=== PATIENT | male | born 1990 | race African-American/Black ===

== ENCOUNTER 2024-08-24 10:26 | Inpatient (IN) | payer MEDICARE, MEDICAID, SELFPAY ==
[2024-08-24] VITALS (9 sets, daily range): BP systolic 104–128; BP diastolic 74–92; PULSE 102–116; RESP 18–34; TEMP 36.4–36.9; O2SAT 94–99; BMI 23.5; BMI 21.9
--- NOTE | ~2024-08-24 | CT_ITS ---
CLINICAL HISTORY: SOB CT ANGIOGRAPHY CHEST WITH CONTRAST. 3D POSTPROCESSING. Comparison: None Findings: There is contrast reflux in the IVC and hepatic veins which can be seen with right heart dysfunction. Mild cardiomegaly with no significant pericardial effusion. Unremarkable thoracic aorta and great vessels. No aneurysm. No acute pulmonary embolus. The visualized thyroid and mediastinum are unremarkable. There is a small right pleural effusion. There is diffuse septal thickening. Bilateral lower lobe atelectasis. No consolidation. No pneumothorax. The bones are intact. IMPRESSION: 1. No pulmonary embolus. 2. Pulmonary edema and small right pleural effusion. 3. Evidence for right heart dysfunction. This document has been electronically signed by: Sophia Douglas DO on 08/24/2024 20:38:17
--- NOTE | ~2024-08-24 | XR_ITS ---
EXAMINATION: XR CHEST CLINICAL INFORMATION: cough sob COMPARISON: None available. TECHNIQUE: PA and lateral views of the chest were obtained. FINDINGS: Moderate cardiac enlargement. Mediastinal contours are normal. Mildly prominent vessels in the hilar regions suggesting vascular congestion. Lungs demonstrate mild hazy increased interstitial markings bilaterally, with Zulma lines in the peripheral mid and lower lungs, most consistent with mild CHF. There is biapical pleural scarring. There is no pneumothorax or pleural effusion. There is no focal osseous or soft tissue abnormality. XR/XR chest 2V IMPRESSION: 1. Cardiac enlargement. Vascular congestion with evidence of mild interstitial pulmonary edema. Major differential would include underlying interstitial pulmonary disease. 2. No focal pneumonia or effusion. Electronically signed by: Pedro Moe MD 08/24/2024 12:27 PM [facility]
[2024-08-24 12:35] LABS: Influenza A PCR NEGATIVE (Negative); Influenza B PCR NEGATIVE (Negative); Resp Syncy Virus RNA Qual PCR NEGATIVE (Negative); SARS COV2 PCR INHOUSE NEGATIVE (Negative)
[2024-08-24 12:53] LABS: MANUAL DIFF FLAG NO
[2024-08-24 13:03] LABS: Basophils Absolute Auto 0.1 X10*3/uL (0.0-0.2); Basophils Percent Auto 1.1 % (0-2); Eosinophils Absolute Auto 0.3 X10*3/uL (0.0-0.4); Eosinophils Percent Auto 3.4 % (0-4); Hematocrit 42.8 % (42.0-52.0); Hemoglobin 14.8 g/dl (14.0-18.0); Imm Gran Abs Auto 0.03 X10*3/uL (0.00-0.03); Imm Gran Pct Auto 0.3 % (0.0-0.4); Lymphocytes Absolute Auto 2.3 X10*3/uL (1.2-4.9); Lymphocytes Percent Auto 25.8 % (20-40); Mean Corpuscular HGB Conc 34.6 g/dl (31.0-36.0); Mean Corpuscular Hemoglobin 29.6 pg (27.0-33.0); Mean Corpuscular Volume 85.6 fL (80.0-98.0); Mean Platelet Volume 11.1 fL (9.4-12.4); Monocytes Percent Auto 10.6 % (2-11); Neutrophils Absolute Auto 5.3 x10*3/uL (2.0-8.3); Neutrophils Percent Auto 58.8 % (45-73); Platelet Count 261 X10*3/uL (160-400); Red Cell Distribution Width 12.8 % (11.0-16.0); White Blood Count 9.1 X10*3/uL (4.8-10.8)
[2024-08-24 13:15] LABS: Alanine Aminotransferase 35 U/L (0-40); Albumin Level 3.6 g/dL (3.5-5.0); Alkaline Phosphatase 82 U/L (39-117); Anion Gap 8 (12-20); Aspartate Amino Transferase 31 U/L (5-37); Bilirubin Total 0.8 mg/dL (0.0-1.0); Blood Urea Nitrogen 12 mg/dL (9-16); Calcium 8.7 mg/dL (8.4-10.2); Carbon Dioxide 20 mmol/L (22-29); Chloride 114 mmol/L (96-108); Creatinine Clr Calc Pharmacy 115.8; Estimated Glomerular Filt Rate > 60; Glucose Random 124 mg/dL (60-115); Potassium 4.2 mmol/L (3.3-5.1); Sodium 138 mmol/L (135-145); Total Protein 6.3 g/dL (6.5-8.0)
[2024-08-24 13:20] LABS: B Type Natriuretic Peptide 1186 pg/mL (<100)
--- NOTE | 2024-08-24 15:46 | ECG_ITS ---
Test Reason : SCREENING Blood Pressure : */* mmHG Vent. Rate : 103 BPM Atrial Rate : 103 BPM P-R Int : 146 ms QRS Dur : 86 ms QT Int : 356 ms P-R-T Axes : 33 16 66 degrees QTcB Int : 466 ms Sinus tachycardia with occasional Premature ventricular complexes Possible Left atrial enlargement Low voltage QRS Borderline ECG No previous ECGs available Referred By: Mela Kruse Electronically Signed By: SUZANNE LUTHER
--- NOTE | 2024-08-24 15:47 | ED.GENADULT ---
HPI - General Adult General Chief complaint: Upper Respiratory Symptoms Stated complaint: diff breathing Time Seen by Provider: 08/24/24 15:34 History of Present Illness ED Provider: Dr. Kruse HPI narrative: 34 y/o M patient; PMH + smoking, + social alcohol use, + daily cocaine use, thyroid issue ; presents from home reporting three days of a dry non-productive cough and shortness of breath. He said the shortness of breath is worse with laying flat. Last night he had to sleep sitting up in a chair as he felt that every time he lay down he was gasping for breath. He otherwise denies: chest pain, nausea/vomiting, abdominal pain, fever or chills. No known sick contacts. The patient is 5 days clean of alcohol and smoking, 8 days of cocaine . However he does say prior to the last 8 days he smoked less than a 20 every day for approx 10 weeks. He denies any known family cardiac or lung history. He denies any IV drug use ever. Related Data Home Medications ?Medication ?Instructions ?Recorded ?Confirmed No Known Home Meds 08/24/24 08/24/24 Allergies Allergy/AdvReac Type Severity Reaction Status Date / Time No Known Allergies Allergy Verified 08/24/24 11:03 Review of Systems Review of Systems: Yes all other systems are reviewed and are negative PMFSH Past Medical History Attestation statement: The following information was validated with the patient. Source: unable to obtain Medical History (Updated 08/24/24 @ 20:31 by Linn Gomez PA-C) Hyperthyroidism Social History Social History Smoked in Last 30 Days: No Use of substances other than those prescribed or required for medical reasons: No Advance Directives: No Advance Directives Information Provided: Yes Do you have a plan to hurt others: No Plan Physical Exam ED Vital Signs: Vital Signs - 24 hr 08/24/24 11:00 08/24/24 15:51 08/24/24 16:07 Temperature 97.6 F 98.4 F Pulse Rate 102 H 108 H Respiratory Rate 18 21 H Blood Pressure 128/92 H 108/80 Pulse Oximetry 97 96 96 Oxygen Delivery Method Room Air Room Air Room Air 08/24/24 18:09 08/24/24 19:05 08/24/24 19:56 Temperature 98.2 F 97.8 F Pulse Rate 106 H 116 H Respiratory Rate 31 H 34 H Blood Pressure 115/82 118/87 114/87 Pulse Oximetry 97 94 Oxygen Delivery Method Room Air Room Air 08/24/24 19:57 08/24/24 20:29 Temperature 97.8 F Pulse Rate 113 H 112 H Respiratory Rate 19 30 H Blood Pressure 114/87 113/78 Pulse Oximetry 95 95 Oxygen Delivery Method Room Air Room Air BMI result Body Mass Index 23.5 Patient is afebrile and mildly tachycardic. Const General: cooperative HENMT Head: Yes normal to inspection and Yes atraumatic Eyes General: appearance normal, both eyes and all related structures Pupils: Equal, round and reactive pupils present EOM: EOMs intact bilaterally Neck Neck: Yes normal visual inspection, Yes full ROM, Yes supple and No tender Chest Chest palpation & inspection: normal inspection of the chest and normal palpation of entire chest wall Resp Other: Crackles at RLL Effort & Inspection: normal respiratory effort, able to speak in complete sentences, Actively coughing and no respiratory distress Cardio Rate: regular rate Rhythm: regular rhythm Peripheral pulses: Peripheral pulses 2+ throughout GI Inspection: Yes normal to inspection, No Abdominal wall edema and No distended Palpation (GI): Soft to palpation, not firm, nontender, no guarding and not rigid Auscultation: normal bowel sounds Back/Spine/Pelvis Back: No back tenderness Neuro Cranial nerves: Yes Equal, round and reactive pupils present Course Course Course Narrative: Patient is afebrile and hemodynamically stable. Reviewed triage results - added EKG, troponin and inflammatory markers. CXR notable for moderate cardiac enlargement, vascular congestion, and increased interstitial markings bilaterally. Added CTA Chest. Reevaluation(s) Reevaluation #1: Labs reviewed. Initial troponin 11.9. BNP 1186. COVID/Flu/RSV negative. 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 Patient continues to have tachycardia 10 - 130BPM with tachypnea and SpO2 92 - 96% on RA while upright. Patient will require IV diuretics, ECHO, and cardiology consultation. Provided Lasix 20mg IV. Plan: Admit to hospitalist Condition: Stable Medications Administered Discontinued Medications Generic Name Dose Route Start Last Admin Trade Name Freq PRN Reason Stop Dose Admin Furosemide 20 mg 08/24/24 19:30 08/24/24 19:56 Furosemide 20 Mg/2 Ml Vial IVPUSH 08/24/24 19:31 20 mg ONCE ONE Administration Protocol Iohexol 65 ml 08/24/24 18:58 08/24/24 18:59 Iohexol 350 Mg/Ml 100 Ml Infus..Btl IV 08/24/24 18:59 65 ml ONCE ONE Administration Medical Decision Making Lab Data 08/24/24 12:48 08/24/24 12:48 Labs: Lab Results 08/24/24 08/24/24 08/24/24 Range/Units 11:45 12:48 17:10 WBC 9.1 (4.8-10.8) X10*3/uL RBC 5.00 (4.60-5.80) X10*6/uL Hgb 14.8 (14.0-18.0) g/dl Hct 42.8 (42.0-52.0) % MCV 85.6 (80.0-98.0) fL MCH 29.6 (27.0-33.0) pg MCHC 34.6 (31.0-36.0) g/dl RDW 12.8 (11.0-16.0) % Plt Count 261 (160-400) X10*3/uL MPV 11.1 (9.4-12.4) fL Immature Gran % (Auto) 0.3 (0.0-0.4) % Neut % (Auto) 58.8 (45-73) % Lymph % (Auto) 25.8 (20-40) % [place] % (Auto) 10.6 (2-11) % Eos % (Auto) 3.4 (0-4) % Baso % (Auto) 1.1 (0-2) % Lymph # (Auto) 2.3 (1.2-4.9) X10*3/uL [place] # (Auto) 1.0 (0.1-1.2) X10*3/uL Eos # (Auto) 0.3 (0.0-0.4) X10*3/uL Baso # (Auto) 0.1 (0.0-0.2) X10*3/uL Abs Immat Gran (auto) 0.03 (0.00-0.03) X10*3/uL Absolute Neuts (auto) 5.3 (2.0-8.3) x10*3/uL Absolute Nucleated RBC 0.000 (0.0-0.012) X10*3/uL Nucleated RBC % (auto) 0.0 (0.0-0.2) /100WBC ESR 2 (0-15) MM/HR Sodium 138 (135-145) mmol/L Potassium 4.2 (3.3-5.1) mmol/L Chloride 114 H (96-108) mmol/L Carbon Dioxide 20 L (22-29) mmol/L Anion Gap 8 L (12-20) BUN 12 (9-16) mg/dL Creatinine 0.84 (0.5-1.4) mg/dL Estim Creat Clear Calc 115.8 Estimated GFR > 60 Random Glucose 124 H (60-115) mg/dL Calcium 8.7 (8.4-10.2) mg/dL Magnesium 2.0 (1.6-2.6) mg/dL Total Bilirubin 0.8 (0.0-1.0) mg/dL Direct Bilirubin 0.2 (0.0-0.5) mg/dL AST 31 (5-37) U/L ALT 35 (0-40) U/L Alkaline Phosphatase 82 (39-117) U/L Troponin I High Sens 11.9 13.2 (<3.5-35.0) ng/L C-Reactive Protein 0.41 (< or = 0.50) mg/dL B-Natriuretic Peptide 1186 H (<100) pg/mL Total Protein 6.3 L (6.5-8.0) g/dL Albumin 3.6 (3.5-5.0) g/dL Lipase 14 (8-78) U/L Influenza Type A (PCR) NEGATIVE (Negative) Influenza Type B (PCR) NEGATIVE (Negative) RSV RNA Qual (PCR) NEGATIVE (Negative) SARS-CoV-2 RNA (RT-PCR) NEGATIVE (Negative) Independent Interpretation I performed an independent interpretation of an: EKG Interpretation: ST 104BPM with normal intervals Radiology Impression Discussion of test interpretation with radiology: I have reviewed the radiologist's reading. Radiologist Impression: EXAMINATION: XR CHEST CLINICAL INFORMATION: cough sob COMPARISON: None available. TECHNIQUE: PA and lateral views of the chest were obtained. FINDINGS: Moderate cardiac enlargement. Mediastinal contours are normal. Mildly prominent vessels in the hilar regions suggesting vascular congestion. Lungs demonstrate mild hazy increased interstitial markings bilaterally, with Zulma lines in the peripheral mid and lower lungs, most consistent with mild CHF. There is biapical pleural scarring. There is no pneumothorax or pleural effusion. There is no focal osseous or soft tissue abnormality. XR/XR chest 2V IMPRESSION: 1. Cardiac enlargement. Vascular congestion with evidence of mild interstitial pulmonary edema. Major differential would include underlying interstitial pulmonary disease. 2. No focal pneumonia or effusion. Electronically signed by: Pedro Moe MD 08/24/2024 12:27 PM [facility] Discharge Plan Discharge Clinical Impression: CHF (congestive heart failure) Patient Disposition: Admitted As Inpatient Print Language: Nepali
[2024-08-24 15:50] LABS: Bilirubin Direct 0.2 mg/dL (0.0-0.5); Lipase 14 U/L (8-78)
[2024-08-24 16:01] LABS: Troponin-I High Sensitivity 11.9 ng/L (<3.5-35.0)
[2024-08-24 16:04] LABS: C Reactive Protein 0.41 mg/dL (< or = 0.50)
--- NOTE | 2024-08-24 16:08 | PC.NURSE ---
Pt presents from home, reporting last few days gasping for air and unable to sleep due to SOB. Reporting SOB worsens on exertion and laying down flat. Alert and oriented, breathing even and unlabored while at rest. No pain right now. Sinus tach on bedside monitor.
[2024-08-24 16:37] LABS: Erythrocyte Sedimentation Rate 2 MM/HR (0-15)
--- OUTSIDE RECORDS SUMMARY | 2024-08-24 16:40 | XMS_ITS | Clinical Summary ---
Author Organization [facility] Address [address] [place] [address] Care Team Providers Care Medication Reconciliation Technician Name Role Phone Sapphire Avendano Primary Care Provider [phone] Source Comments PLEASE NOTE, if this patient is a minor, it may be UNLAWFUL to discuss sensitive information that is contained in these records (such as FAMILY PLANNING, MENTAL HEALTH or SUBSTANCE ABUSE) with the minor patient's parent or other person without the patient's specific authorization.[facility] Allergies No known active allergies Medications methIMAzole (TAPAZOLE) 10 mg tablet Take 20 mg by mouth 02/15/2021 Active propranoloL (INDERAL) 20 mg tablet Take 20 mg by mouth 02/15/2021 Active Active Problems Problem Noted Date Diagnosed Date Hx of drug overdose 05/08/2021 Overview (05/08/2021): Recent ER visit ([facility]) 05/07/2021 after snorting cocaine. Was discharged with Narcan Immunizations Name Administration Dates Next Due PNEUMOCOCCAL POLYSACCHARIDE PPV23 10/31/2020 TDAP 10/31/2020 Social History Tobacco Use Types Packs/Day Years Used Date Smoking Tobacco: Light Smoker Cigarettes Smokeless Tobacco: Never Comments:5-6 a day solos Alcohol Use Standard Drinks/Week Comments No 0 (1 standard drink = 0.6 oz pur e alcohol) Social Connections Answer Date Recorded Connectedness 0 04/16/2024 Financial Resource Strain Answer Date R ecorded Financial Resource Strain 0 2018 Stress Answer Date Recorded Stress 0 03/22/2019 Physical Activity Answer Date Recorded Physical Activity 0 03/22/2019 Food Insecurity Answer Date Recorded Food 0 04/23/2024 Transportation Needs Answer Date Record ed Transportation 0 03/22/2019 Housing Stability Answer Date Recorded Housing 0 03/22/2019 Safety and Environment Answer Date Julio rded Safety 0 03/22/2019 Utilities Answer Date Recorded Utilities 0 03/22/2019 Employment Answer Date Recorded Stress 0 04/16/2024 Sex and Gender Information Value Date Recorded Sex Assigned at Male 10/31/2020 7:53 AM PDT Legal Sex Male 7:11 AM PDT Gender Identity Male 10/31/2020 7:53 AM PDT Sexual Orientation Straight 10/31/2020 7: 53 AM PDT Last Filed Vital Signs Vital Sign Reading Time Taken Comments Blood Pressure 137/103 12/13/2021 1:07 PM EDT Pulse 91 12/13/2021 1:07 PM EDT Temperature 36.7 ??C (98.1 ??F) 10/31/2020 10:53 AM E DT Respiratory Rate 18 10/31/2020 10:53 AM EDT Oxygen Saturation 97% 10/31/2020 10:53 AM EDT Inhaled Oxygen Concentration - - Weight 57.9 kg (127 lb 9.6 oz) 10/31/2020 10:53 AM EDT Height 173 cm (5' 8.11 ) 10/31/2020 10:53 AM EDT Body Mass Index 19.34 10/31/2020 10:53 AM EDT Plan of Treatment Health Maintenance Due Date Last Done Comments Medicare Annual Wellness Visit 2008 Imm-Hepatitis B (1 of 3 - 19 + 3-dose series) 2009 Imm-Pneumococcal (2 of 2 - PCV) 10/31/2021 Tobacco Cessation Counseling (#1) 10/31/2021 021 Tobacco Screening 10/31/2021 10/31/2020 Hypertension Screening (#1) 12/13/2022 [id number] ( - season) 2024 Imm-Influenza (#1) 2024 09/23/2015, 08/03/2014 Alcohol and Drug Screen 07/29/2024 10/31/2020 Depression Annual Screen 07/29/2024 10/31/2020 Imm-DTaP/Tdap/Td (3 - Td or Tdap) 10/31/2030 021, 08/03/2014 HIV Screening Completed 11/04/2020 Hepatitis C Screening Completed 11/04/2020 Procedures Procedure Name Priority Date/Time Associated Diagnosis Comments HEPATITIS C AB W/RFLX HCV RNA, QT, RT PCR Routine 11/04/2020 11:29 AM EDT Screening for viral disease HIV 1/2 AG & AB W/RFLX (4TH GEN) Routine 11/04/2020 11:27 AM EDT Screening for viral disease from Last 3 Months or Most Recently Relevant to Health Maintenance Results * HEPATITIS C AB W/RFLX HCV RNA, QT, RT PCR (11/04/2020 11:29 AM EDT) HEPATITIS C ANTIBODY NON-REACT ASHLEY NON-REACT ASHLEY [employer] [facility] SIGNAL TO CUT-OFF 0.01 <1.00 [employer] [facility] Comment: HCV antibody was non-reactive. There is no laboratory evidence of HCV infection. In most cases, no further action is required. However, if recent HCV exposure is suspected, a test for HCV RNA (test code 21171) is suggested. For additional information please refer to http://education.Schmoozer/faq/YDT62c6 (This link is being provided for informational/ educational purposes only.) Blood Blood / Unknown 11/04/2020 1 1:29 AM EDT 11/04/2020 11:29 AM EDT [employer] DIRECTOR-C LAB - BLOOD DRAW Final Resul t [employer] [facility] [address] [address], [employer] [facility] [address] [address] from Last 3 Months or Most Recently Relevant to Health Maintenance Insurance [place] MEDICA[place] D[place] [facility] DENTAL MEDICAID MEDICARE - [place] Care Teams Medication Reconciliation Technician Relationship Specialty Start Date End Date Sapphire Avendano PA [address] [place] [address] PCP - General Primary Care 12/11/23
--- OUTSIDE RECORDS SUMMARY | 2024-08-24 16:40 | XMS_ITS | Patient Health Record ---
Author Organization [facility] Address [address], [place] [id number] Care Team Providers Care Speeder Worker Name Role Phone [facility]ult [facility] Primar y Care Provider Unavailable Kavitha Priest Unavailable [phone] Reason For Referral No Information Plan Of Treatment No Information Insurance Providers Payer Name Payer Address Payer Phone Subscriber Number Group Number Insured Name Patient Relationship to Insured Coverage Start Date Coverage End Date [facility] [address] [place] [address] [place] [address] [id number] Vic Mcnulty Self - patient is the insured 3 3
[2024-08-24 17:38] LABS: Troponin-I High Sensitivity 13.2 ng/L (<3.5-35.0)
[2024-08-24] MEDS: iohexoL 350 MG/ML 100 ML INFUS..BTL 65 ML IV (18:59)
--- NOTE | 2024-08-24 19:13 | MHC.EDTECH ---
This pct assumed care of Patient at 1900 ,vitals taken ,RN Cristy is aware of Patient high heart rate and high resp ,Patient belongings list done ,Patient ambulated to bathroom and back to bed .
[2024-08-24] MEDS: Furosemide 20 MG/2 ML VIAL IVPUSH (19:56)
--- NOTE | 2024-08-24 19:58 | PHA.MEDREC ---
Addendum entered by Renay Clinton RPh 08/24/24 20:38: [facility] reviewed Original Note: Pharmacy Consult ? Medication Reconciliation Pharmacy has completed the medication reconciliation. Patient states he should be on thyroid medications, however his medicare will not pay for it. Patient has been off his medications for a few months.
--- NOTE | 2024-08-24 20:25 | PM.IMHP ---
History of Present Illness Date of Service: 08/24/24 Attending physician on admission: George Watters Chief Complaint: SOB Pt is a 34 yo male with a pmhx significant for cocaine use and hyperthryoidism, who presented to the ED with 3 days of SOB and dry cough, worsening. he went to [facility] ED yesterday and states that he was told the wait was >8 hours so he decided he would feel better if he went home to rest. he has orthopnea and denies any LE edema. has used cocaine in mild to moderate amounts recently daily for 10 weeks but stopped 8 days ago. he also reports occasional social etoh and quit drinking and smoking 1 week ago. he does not inject. he denies fever, chilld, nausea, vomiting, headache, sore throat, congestion, or rhinorrhea. Review of Systems Constitutional: Constitutional: Denies body ache(s), Denies chills, Denies fatigue, Denies fever(s) and Denies headache(s) Eyes: Eyes: Denies change in vision and Denies photophobia ENT: Denies headache(s), Denies nasal congestion, Denies nasal discharge and Denies sore throat Cardiovascular: Cardiovascular: Denies chest pain, Denies rapid heart rate, Denies leg edema, Denies lightheadedness, Reports dyspnea and Reports orthopnea Respiratory: Respiratory: Denies chest congestion, Reports cough (dry), Reports dyspnea and Denies wheezing Gastrointestinal: Gastrointestinal: Denies diarrhea, Denies nausea and Denies vomiting Genitourinary: Genitourinary: Denies dysuria, Denies urinary frequency and Denies urinary urgency Musculoskeletal: Musculoskeletal: Denies myalgias Integumentary/Breasts: Skin/Breast: Denies rash Neurologic: Denies confusion and Denies headache(s) Psychiatric: Psychiatric: Denies confusion Endocrine: Endocrine: Denies fatigue Hematologic/Lymphatic: Hematologic/Lymphatic: Denies easy bleeding and Denies easy bruising Allergic/Immunologic: Allergic/Immunologic: Denies wheezing [facility] Medical History (Updated 08/24/24 @ 20:31 by Linn Gomez PA-C) Hyperthyroidism Functional capacity: independent ambulation Social History Smoked in Last 30 Days: No Use of substances other than those prescribed or required for medical reasons: No Advance Directives: No Advance Directives Information Provided: Yes Do you have a plan to hurt others: No Plan Narrative: recently quit all 1 week ago: cocaine daily use mild to mederate amount, no injecting. tobacco and social etoh. Meds Allergies Allergy/AdvReac Type Severity Reaction Status Date / Time No Known Allergies Allergy Verified 08/24/24 11:03 Home Medications ?Medication ?Instructions ?Recorded ?Confirmed ?Last Taken ?Type No Known Home Meds 08/24/24 08/24/24 Unknown History Physical Exam Vital Signs and Narrative: Vital Signs: Last Vital Signs Temp 97.8 F 08/24/24 19:05 Pulse 113 H 08/24/24 19:57 Resp 19 08/24/24 19:57 BP 114/87 08/24/24 19:57 Pulse Ox 95 08/24/24 19:57 O2 Del Method Room Air 08/24/24 19:57 BMI result Body Mass Index 23.5 General: AOx3, no acute distress Resp: CTA bilaterally, diminished throughout CVS: tachy, regular rhythm GI: +BS, NT, no distention Skin: Warm, dry Neuro: Cranial nerves II-XII grossly intact bilaterally. Motor grossly intact bilaterally Extremities: No LE edema Psych: Appropriate affect Const: General: No confusion Orientation/consciousness: No confusion Eyes: Direct Ophthalmoscopy: No photophobia Neuro: General: No confusion Results Labs 08/24/24 12:48 08/24/24 12:48 Labs: Laboratory Results - last 24 hr 08/24/24 08/24/24 08/24/24 11:45 12:48 17:10 MCV 85.6 MCH 29.6 MCHC 34.6 RDW 12.8 Plt Count 261 MPV 11.1 Immature Gran % (Auto) 0.3 Neut % (Auto) 58.8 Lymph % (Auto) 25.8 [place] % (Auto) 10.6 Eos % (Auto) 3.4 Baso % (Auto) 1.1 Lymph # (Auto) 2.3 [place] # (Auto) 1.0 Eos # (Auto) 0.3 Baso # (Auto) 0.1 Abs Immat Gran (auto) 0.03 Absolute Neuts (auto) 5.3 Absolute Nucleated RBC 0.000 Nucleated RBC % (auto) 0.0 ESR 2 Anion Gap 8 L Estim Creat Clear Calc 115.8 Estimated GFR > 60 Random Glucose 124 H Calcium 8.7 Magnesium 2.0 Total Bilirubin 0.8 Direct Bilirubin 0.2 AST 31 ALT 35 Alkaline Phosphatase 82 Troponin I High Sens 11.9 13.2 C-Reactive Protein 0.41 B-Natriuretic Peptide 1186 H Total Protein 6.3 L Albumin 3.6 Lipase 14 Influenza Type A (PCR) NEGATIVE Influenza Type B (PCR) NEGATIVE RSV RNA Qual (PCR) NEGATIVE SARS-CoV-2 RNA (RT-PCR) NEGATIVE Imaging Radiologist's Impressions: Impressions Chest X-Ray 08/24/24 11:30 IMPRESSION: 1. Cardiac enlargement. Vascular congestion with evidence of mild interstitial pulmonary edema. Major differential would include underlying interstitial pulmonary disease. 2. No focal pneumonia or effusion. Electronically signed by: Pedro Meo MD 08/24/2024 12:27 PM [facility] Assessment and Plan (1) CHF exacerbation: Status: Acute Plan Pt is a 34 yo male with a pmhx significant for cocaine use and hyperthryoidism, who presented to the ED with 3 days of SOB and dry cough, worsening. recent hx of regular cocaine use and untreated hyperthyroid. acute CHF exacerbation - WBC normal, tachycardic and tachypneic, no sign of infection, no sepsis - CXR with Cardiac enlargement. Vascular congestion with evidence of mild interstitial pulmonary edema. Major differential would include underlying interstitial pulmonary disease. - CTA negative for PE. + pulmonary edema and small right pleural effusion. evidence of R heart dysfunction. - BNP 1186 - EKG with sinus tach and PVCs - trops x2 negative - flu/COVID/RSV negative - given lasix 20mg IV in ED, continue lasix 40mg BID - echo - cardiology consult hyperthyroid - likely cause of tachycardia, can be contributing to CHF - TSH pending cocaine use - pt 8 days sober, encourage to continue sobriety full code VTE prophy: lovenox Pt with acute CHF exacerbation requiring admission for IV diuresis and further w/u for at least 2 midnights stay. Quality Stroke Does the patient have a stroke diagnosis?: No VTE Prior VTE?: No VTE Risk Level:: Medical - moderate - high VTE Device Contraindication: Treatment Not Indicated VTE Drug Contraindication: N/A - Med Ordered
--- NOTE | 2024-08-24 20:39 | MHC.EDTECH ---
Patient urine sample collected and sent to lab ,550 ml urine empty from urinal .
[2024-08-24 20:58] LABS: Amphetamine Screen Urine Not Detected (Not Detect); Barbiturates, Urine Not Detected (Not Detect); Benzodiazepines Screen Urine Not Detected (Not Detect); Buprenorphine Scr Not Detected (Not Detect); Cannabinoid Screen Urine POSITIVE (Not Detect); Cocaine Screen Urine POSITIVE (Not Detect); Fentanyl, urine Not Detected (Not Detect); Methadone Screen, Urine Not Detected (Not Detect); Opiate Screen Urine Not Detected (Not Detect); Oxycodone Screen Urine Not Detected (Not Detect); Phencyclidine Screen Urine Not Detected (Not Detect)
[2024-08-24 21:10] LABS: Thyroid Stimulating Hormone 0.01 uIU/mL (0.32-4.0)
[2024-08-24] MEDS: Melatonin 3 MG TABLET 6 MG PO (22:38)
[2024-08-24] MEDS: Enoxaparin Sodium 40 MG/0.4 ML SYRINGE SUBCUT (22:38)
[2024-08-24] MEDS: 0.9 % Sodium Chloride Flush 3 ML SYRINGE IVFLUSH (22:40)
[2024-08-24 23:31] LABS: Free T4 (Free Thyroxine) 1.62 ng/dL (0.71-1.85)
[2024-08-25 03:55] VITALS: BP 117/81; PULSE 104; RESP 20; TEMP 36.6; O2SAT 93
--- NOTE | 2024-08-25 07:00 | CA_ITS ---
Transthoracic Echocardiogram Patient (Last, First, Middle): Vic Pineda, Gender: Male Date of : 1990 Age: 34 Procedure Date: 08/25/2024 Procedure Type: Transthoracic Echocardiogram Location: [facility] Height: 170.18 cm Weight: 63.05 kg BSA: 1.73 m2 Heart Rate: bpm BP: 113 / 81 mmHg Wire Repairer: TO Referring MD: Linn Gomez PA-C Symptoms: new CHF Study Quality: Adequate w contrast ECG Rhythm: Sinus Conclusions: - The left ventricular systolic function is severely decreased. The visually estimated ejection fraction is between 10-15%. - The basal inferior segment is akinetic. - The left atrium is severely dilated. - There is moderate to severe mitral valve regurgitation. Findings Procedure Information Contrast agent, definity, is being given per protocol without apparent complications. Left Ventricle Severely increased left ventricular cavity size. There is normal left ventricular wall thickness. The left ventricular systolic function is severely decreased. The visually estimated ejection fraction is between 10 15%. There is severe global hypokinesis. Evidence suggests grade III (severe) diastolic dysfunction. LV peak GLS -7%. Wall Motion Rest Echo Findings The basal inferior segment is akinetic. Right Ventricle Mildly increased right ventricular cavity size. There is mildly decreased right ventricular systolic function. Atria The left atrium is severely dilated. The right atrium is mildly dilated. Aortic Valve There is a normal trileaflet aortic valve. There is no aortic valve stenosis. There is no aortic valve regurgitation. Mitral Valve The posterior mitral leaflet has restricted mobility. There is moderate to severe mitral valve regurgitation. The mitral regurgitation jet is directed posteriorly. There is no mitral valve stenosis. Pulmonic Valve The pulmonic valve is likely normal. Tricuspid Valve There is mild tricuspid valve regurgitation. There is no evidence of pulmonary hypertension. Great Vessels The asc aorta is normal in size. Venous The inferior vena cava is mildly dilated and collapses greater than 50% with inspiration. Pericardium/Pleural There is a small pericardial effusion. Prior Study Comparison No prior study available for comparison. Measurements 2D Linear Measurements IVSd: 0.68 0.6-0.9/0.6-1.0 cm LVIDd: 6.98 3.9-5.3/4.2-5.9 cm LVIDd Index: 4.03 2.4-3.2/2.2-3.1 cm/m2 LVIDs: 6.29 2.0-3.6 cm LVPWd: 0.70 0.7-1.1 cm LA Diam: 5.10 2.7-3.8/3.0-4.0 cm LAIDs Index: 2.95 1.5-2.3 cm/m2 LV Mass: 253.76 67-162/88-224 g LV Mass Index: 146.68 43-95/49-115 g/m2 LVOT Diam: 2.30 3.0+(-)1.3 cm 2D Systolic Function EF 4C: 28.30 >55% EF 2C: 17.90 >55% EF BiP: 21.10 >55% Mitral Valve MR Vol - PW Dopp: 39.90 MR VTI: 1.14 MR ERO: 35.00 MR Alias Matheus: 0.38 MR RAD: 0.80 Aortic Valve AoV Pk Matheus: 0.72 AoV Mn Matheus: 0.55 AoV VTI: 0.10 AoV Pk Grad: 2.00 Aov Mn Grad: 1.00 RAE Cont.VTI: 2.99 LVOT LVOT Pk Matheus: 0.44 LVOT Mn Matheus: 0.32 LVOT VTI: 0.07 LVOT Pk Grad: 1.00 LVOT Mn Grad: 0.00 LVOT Diam: 2.30 LVOT Area: 4.15 Right Ventricle TAPSE (mm): 14.30 TVS' Matheus: 9.14 Tricuspid Valve TR Pk Matheus: 2.13 TR Pk Grad: 18.00 RA Press: 8.00 RVSP: 26.00 Great Vessels Aorta Sinus of Valsalva: 3.17 2.0-3.5 cm Ao Asc: 2.90 2.1-3.4 cm Updated in Other Vendor System with Status of Final Jose De Jesus Vega MD electronically signed on 08/25/2024 12:22:08 PM with status of Final
[2024-08-25 07:29] VITALS: BP 113/81; PULSE 95; RESP 16; TEMP 37.1; O2SAT 98
[2024-08-25 07:58] LABS: MANUAL DIFF FLAG NO
[2024-08-25 08:11] LABS: Basophils Absolute Auto 0.1 X10*3/uL (0.0-0.2); Basophils Percent Auto 1.2 % (0-2); Eosinophils Absolute Auto 0.4 X10*3/uL (0.0-0.4); Eosinophils Percent Auto 4.4 % (0-4); Hematocrit 44.7 % (42.0-52.0); Hemoglobin 15.4 g/dl (14.0-18.0); Imm Gran Abs Auto 0.03 X10*3/uL (0.00-0.03); Imm Gran Pct Auto 0.3 % (0.0-0.4); Lymphocytes Absolute Auto 2.7 X10*3/uL (1.2-4.9); Lymphocytes Percent Auto 28.6 % (20-40); Mean Corpuscular HGB Conc 34.5 g/dl (31.0-36.0); Mean Corpuscular Hemoglobin 29.5 pg (27.0-33.0); Mean Corpuscular Volume 85.6 fL (80.0-98.0); Mean Platelet Volume 11.8 fL (9.4-12.4); Monocytes Absolute Auto 0.9 X10*3/uL (0.1-1.2); Monocytes Percent Auto 10.2 % (2-11); Neutrophils Absolute Auto 5.1 x10*3/uL (2.0-8.3); Neutrophils Percent Auto 55.3 % (45-73); Platelet Count 281 X10*3/uL (160-400); Red Blood Count 5.22 X10*6/uL (4.60-5.80); Red Cell Distribution Width 12.7 % (11.0-16.0); White Blood Count 9.3 X10*3/uL (4.8-10.8)
[2024-08-25 08:32] LABS: Anion Gap 13 (12-20); Blood Urea Nitrogen 12 mg/dL (9-16); Calcium 8.9 mg/dL (8.4-10.2); Carbon Dioxide 21 mmol/L (22-29); Chloride 109 mmol/L (96-108); Creatinine Clr Calc Pharmacy 111.2; Estimated Glomerular Filt Rate > 60; Glucose Random 101 mg/dL (60-115); Potassium 3.9 mmol/L (3.3-5.1); Sodium 139 mmol/L (135-145)
--- NOTE | 2024-08-25 08:55 | MHC.CM.PN ---
CM met with Patient at bedside. Patient lives in an apartment with his Mother and he is functionally independent (his car is here and he intends ti drive himself home, at dc). Patient has no PCP since his old PCP moved and CM has provided him with a brochure of local PCPs. Home/self care is Patient's goal and CM has initiated and will follow for dc planning. Patient declined completing a HCP at this time.
--- NOTE | 2024-08-25 09:18 | PM.CNCAR ---
History of Present Illness History of Present Illness Date of Service: 08/25/24 Chief complaint: CHF, hyperthyroid Narrative: This is a cardiology consultation regarding congestive heart failure. Patient does not have any prior history of coronary disease or myocardial infarction or cardiomyopathy or any other cardiac issues. Over the last few days, he has apparently been feeling short of breath and that led to this hospitalization. Cardiac BNP has been elevated with a suspicion of congestive heart failure and we are asked to see him. He has received some IV diuretics and states he is feeling better. No other complaints like angina. History of substance abuse and drug screen was positive for cocaine and marijuana. Also a smoker but denies any alcohol excess. No major comorbidities apart from drug use. Review of Systems Review of Systems: Yes all other systems are reviewed and are negative Constitutional: Constitutional: Reports as per HPI and Reports no additional constitutional complaints Eyes: Eyes: Reports as per HPI and Denies no additional eye complaints ENT: Denies system reviewed and no additional complaints, except as documented and Reports as per HPI Cardiovascular: Cardiovascular: Reports as per HPI, Reports no additional cardiovascular complaints, Denies acrocyanosis, Denies cool extremities, Denies chest pain, Denies leg edema, Denies lightheadedness, Denies palpitations and Reports dyspnea Respiratory: Respiratory: Reports as per HPI, Denies no additional respiratory complaints and Reports dyspnea Gastrointestinal: Gastrointestinal: Reports as per HPI and Denies no additional gastrointestinal complaints Genitourinary: Genitourinary: Reports no additional male genitourinary complaints and Reports as per HPI Musculoskeletal: Musculoskeletal: Reports no additional musculoskeletal complaints and Reports as per HPI Integumentary/Breasts: Skin/Breast: Reports system reviewed and no additional complaints, except as docu Neurologic: Reports system reviewed and no additional complaints, except as documented and Reports as per HPI Psychiatric: Psychiatric: Reports no additional psychiatric complaints and Reports as per HPI Endocrine: Endocrine: Reports no additional endocrine complaints, Reports as per HPI and Denies palpitations Hematologic/Lymphatic: Hematologic/Lymphatic: Reports no additional hematologic/lymphatic complaints and Reports as per HPI Allergic/Immunologic: Allergic/Immunologic: Reports no additional allergic/immunologic complaints and Reports as per HPI [facility] Past Medical History Medical History (Updated 08/25/24 @ 09:21 by Jose De Jesus Vega MD) Hyperthyroidism Family History Family History Father No problems noted. Mother No problems noted. Social History Social History Household Members: Family Housing: Apartment Do you presently have visiting nurse or other home services: No Patient Tobacco Use Status: Former Tobacco user Tobacco use type: Cigarette Cigarettes Per Day: 7 Substance Use Type: Crack/Cocaine and Marijuana service: No Meds Allergies Allergy/AdvReac Type Severity Reaction Status Date / Time No Known Allergies Allergy Verified 08/24/24 11:03 Active Medications: Current Medications Acetaminophen (Acetaminophen 325 Mg Tablet) 975 mg PO Q6H PRN PRN Reason: Pain, Mild 1-3,fever,headache Calcium Carbonate (Calcium Carbonate 750 Mg Tab.Chew) 750 mg PO Q4H PRN PRN Reason: Heartburn Enoxaparin Sodium (Enoxaparin Sodium 40 Mg/0.4 Ml Syringe) 40 mg SUBCUT Q24H [facility] Last Admin: 08/24/24 22:38 Dose: 40 mg Furosemide (Furosemide 40 Mg/4 Ml Vial) 40 mg IVPUSH BID@0900,1800 [facility]; Protocol Magnesium Hydroxide (Milk Of Magnesia 30 Ml Oral.Susp) 30 ml PO DAILY PRN PRN Reason: Constipation Melatonin (Melatonin 3 Mg Tablet) 6 mg PO BEDTIME PRN PRN Reason: Insomnia Last Admin: 08/24/24 22:38 Dose: 6 mg Ondansetron HCl (Ondansetron Hcl 4 Mg/2 Ml Vial) 4 mg IVPUSH Q8H PRN PRN Reason: Nausea and Vomiting Sodium Chloride (0.9 % Sodium Chloride Flush 3 Ml Syringe) 3 ml IVFLUSH QSHIFT [facility] Last Admin: 08/24/24 22:40 Dose: 3 ml Home Medications ?Medication ?Instructions ?Recorded ?Confirmed ?Last Taken ?Type No Known Home Meds 08/24/24 08/24/24 Unknown History Physical Exam Vital Signs: Vital Signs: Last Vital Signs Temp 98.7 F 08/25/24 07:29 Pulse 95 08/25/24 07:29 Resp 16 08/25/24 07:29 BP 113/81 08/25/24 07:29 Pulse Ox 98 08/25/24 07:29 O2 Del Method Room Air 08/25/24 07:29 BMI result Body Mass Index 21.9 Const: General: comfortable and no acute distress Orientation/consciousness: patient oriented x3 HEENT: Other: Unremarkable Head: Yes normal to inspection Neck: Neck: Yes normal visual inspection Chest: Chest palpation & inspection: normal inspection of the chest Resp: Auscultation: crackles Cardio: Palpation: normal PMI Heart sounds: S1 normal heart sound present, S2 normal heart sound present, Gallop heart sound present, Murmur heart sound present systolic at the apex and no rubs GI: Palpation (GI): Soft to palpation Back/Spine/Pelvis: Other: unremarkable Skin: General skin exam: no rashes or lesions noted Neuro: General: patient oriented x3 Extrem: General: Yes normal to inspection Psych: Mental Status: mental status grossly normal Objective Labs and Meds 08/25/24 07:15 08/25/24 07:15 Lab results: Laboratory Results - last 24 hr 08/24/24 08/24/24 08/24/24 11:45 12:48 17:10 WBC 9.1 RBC 5.00 Hgb 14.8 Hct 42.8 MCV 85.6 MCH 29.6 MCHC 34.6 RDW 12.8 Plt Count 261 MPV 11.1 Immature Gran % (Auto) 0.3 Neut % (Auto) 58.8 Lymph % (Auto) 25.8 [place] % (Auto) 10.6 Eos % (Auto) 3.4 Baso % (Auto) 1.1 Lymph # (Auto) 2.3 [place] # (Auto) 1.0 Eos # (Auto) 0.3 Baso # (Auto) 0.1 Abs Immat Gran (auto) 0.03 Absolute Neuts (auto) 5.3 Absolute Nucleated RBC 0.000 Nucleated RBC % (auto) 0.0 ESR 2 Sodium 138 Potassium 4.2 Chloride 114 H Carbon Dioxide 20 L Anion Gap 8 L BUN 12 Creatinine 0.84 Estim Creat Clear Calc 115.8 Estimated GFR > 60 Random Glucose 124 H Calcium 8.7 Magnesium 2.0 Total Bilirubin 0.8 Direct Bilirubin 0.2 AST 31 ALT 35 Alkaline Phosphatase 82 Troponin I High Sens 11.9 13.2 C-Reactive Protein 0.41 B-Natriuretic Peptide 1186 H Total Protein 6.3 L Albumin 3.6 Lipase 14 TSH 0.01 L Free T4 1.62 Urine Opiates Screen Ur Buprenorphine Scrn Ur Oxycodone Screen Urine Methadone Screen Urine Fentanyl Screen Ur Barbiturates Screen Ur Phencyclidine Scrn Ur Amphetamines Screen U Benzodiazepines Scrn Urine Cocaine Screen U Marijuana (THC) Screen Influenza Type A (PCR) NEGATIVE Influenza Type B (PCR) NEGATIVE RSV RNA Qual (PCR) NEGATIVE SARS-CoV-2 RNA (RT-PCR) NEGATIVE 08/24/24 08/25/24 20:32 07:15 WBC 9.3 RBC 5.22 Hgb 15.4 Hct 44.7 MCV 85.6 MCH 29.5 MCHC 34.5 RDW 12.7 Plt Count 281 MPV 11.8 Immature Gran % (Auto) 0.3 Neut % (Auto) 55.3 Lymph % (Auto) 28.6 [place] % (Auto) 10.2 Eos % (Auto) 4.4 H Baso % (Auto) 1.2 Lymph # (Auto) 2.7 [place] # (Auto) 0.9 Eos # (Auto) 0.4 Baso # (Auto) 0.1 Abs Immat Gran (auto) 0.03 Absolute Neuts (auto) 5.1 Absolute Nucleated RBC 0.000 Nucleated RBC % (auto) 0.0 ESR Sodium 139 Potassium 3.9 Chloride 109 H Carbon Dioxide 21 L Anion Gap 13 BUN 12 Creatinine 0.84 Estim Creat Clear Calc 111.2 Estimated GFR > 60 Random Glucose 101 Calcium 8.9 Magnesium Total Bilirubin Direct Bilirubin AST ALT Alkaline Phosphatase Troponin I High Sens C-Reactive Protein B-Natriuretic Peptide Total Protein Albumin Lipase TSH Free T4 Urine Opiates Screen Not Detected Ur Buprenorphine Scrn Not Detected Ur Oxycodone Screen Not Detected Urine Methadone Screen Not Detected Urine Fentanyl Screen Not Detected Ur Barbiturates Screen Not Detected Ur Phencyclidine Scrn Not Detected Ur Amphetamines Screen Not Detected U Benzodiazepines Scrn Not Detected Urine Cocaine Screen POSITIVE H U Marijuana (THC) Screen POSITIVE H Influenza Type A (PCR) Influenza Type B (PCR) RSV RNA Qual (PCR) SARS-CoV-2 RNA (RT-PCR) ECG Interpretation: EKG with sinus tachycardia at 103/Min; possible left atrial enlargement; normal [place] and corrected QT. Imaging Radiologist's impression: Impressions Chest X-Ray 08/24/24 11:30 IMPRESSION: 1. Cardiac enlargement. Vascular congestion with evidence of mild interstitial pulmonary edema. Major differential would include underlying interstitial pulmonary disease. 2. No focal pneumonia or effusion. Electronically signed by: Pedro Moe MD 08/24/2024 12:27 PM [facility] Assessment and Plan (1) Acute congestive heart failure: Status: Acute Plan Cardiac BNP is over a 1000. Unremarkable CRP/high sensitivity troponins. Drug screen positive for cocaine, marijuana. Overall, suspect acute congestive heart failure, probably related to drug use. Obtain echocardiogram. Agree with diuretics. We will follow up with you. Procedures Date of Service Date of Service: 08/25/24
[2024-08-25] MEDS: Furosemide 40 MG/4 ML VIAL IVPUSH (09:27)
[2024-08-25] MEDS: 0.9 % Sodium Chloride Flush 3 ML SYRINGE IVFLUSH (09:27)
[2024-08-25 11:17] VITALS: BP 91/80; PULSE 108; RESP 18; TEMP 37.1; O2SAT 99
--- NOTE | 2024-08-25 11:54 | P.PNIM_ITS ---
Subjective Subjective Date of Service: 08/25/24 Review of Systems Follow up CHF denied chest pain or sob Physical Exam 2 Vital Signs: Vital Signs: Last Vital Signs Temp 98.8 F 08/25/24 11:17 Pulse 108 H 08/25/24 11:17 Resp 18 08/25/24 11:17 BP 91/80 08/25/24 11:17 Pulse Ox 99 08/25/24 11:17 O2 Del Method Room Air 08/25/24 11:17 BMI result Body Mass Index 21.9 Appearing in no acute distress lung sounds rales heart regular rate rhythm, clear S1, S2 positive bowel sounds, abdomen is soft, nontender neuro patient is alert x3, no focal deficits Objective Data Active Medications Acetaminophen (Acetaminophen 325 Mg Tablet) 975 mg PO Q6H PRN PRN Reason: Pain, Mild 1-3,fever,headache Calcium Carbonate (Calcium Carbonate 750 Mg Tab.Chew) 750 mg PO Q4H PRN PRN Reason: Heartburn Enoxaparin Sodium (Enoxaparin Sodium 40 Mg/0.4 Ml Syringe) 40 mg SUBCUT Q24H [facility] Last Admin: 08/24/24 22:38 Dose: 40 mg Documented By: ЮЛИЯ Furosemide (Furosemide 40 Mg/4 Ml Vial) 40 mg IVPUSH BID@0900,1800 [facility]; Protocol Last Admin: 08/25/24 09:27 Dose: 40 mg Documented By: BEATRIZ Magnesium Hydroxide (Milk Of Magnesia 30 Ml Oral.Susp) 30 ml PO DAILY PRN PRN Reason: Constipation Melatonin (Melatonin 3 Mg Tablet) 6 mg PO BEDTIME PRN PRN Reason: Insomnia Last Admin: 08/24/24 22:38 Dose: 6 mg Documented By: ЮЛИЯ Ondansetron HCl (Ondansetron Hcl 4 Mg/2 Ml Vial) 4 mg IVPUSH Q8H PRN PRN Reason: Nausea and Vomiting Sodium Chloride (0.9 % Sodium Chloride Flush 3 Ml Syringe) 3 ml IVFLUSH QSHIFT [facility] Last Admin: 08/25/24 09:27 Dose: 3 ml Documented By: BEATRIZ Labs 08/25/24 07:15 08/25/24 07:15 Labs: Laboratory Results - last 24 hr 08/24/24 08/24/24 08/24/24 11:45 12:48 17:10 MCV 85.6 MCH 29.6 MCHC 34.6 RDW 12.8 Plt Count 261 MPV 11.1 Immature Gran % (Auto) 0.3 Neut % (Auto) 58.8 Lymph % (Auto) 25.8 [place] % (Auto) 10.6 Eos % (Auto) 3.4 Baso % (Auto) 1.1 Lymph # (Auto) 2.3 [place] # (Auto) 1.0 Eos # (Auto) 0.3 Baso # (Auto) 0.1 Abs Immat Gran (auto) 0.03 Absolute Neuts (auto) 5.3 Absolute Nucleated RBC 0.000 Nucleated RBC % (auto) 0.0 ESR 2 Anion Gap 8 L Estim Creat Clear Calc 115.8 Estimated GFR > 60 Random Glucose 124 H Calcium 8.7 Magnesium 2.0 Total Bilirubin 0.8 Direct Bilirubin 0.2 AST 31 ALT 35 Alkaline Phosphatase 82 Troponin I High Sens 11.9 13.2 C-Reactive Protein 0.41 B-Natriuretic Peptide 1186 H Total Protein 6.3 L Albumin 3.6 Lipase 14 TSH 0.01 L Free T4 1.62 Urine Opiates Screen Ur Buprenorphine Scrn Ur Oxycodone Screen Urine Methadone Screen Urine Fentanyl Screen Ur Barbiturates Screen Ur Phencyclidine Scrn Ur Amphetamines Screen U Benzodiazepines Scrn Urine Cocaine Screen U Marijuana (THC) Screen Influenza Type A (PCR) NEGATIVE Influenza Type B (PCR) NEGATIVE RSV RNA Qual (PCR) NEGATIVE SARS-CoV-2 RNA (RT-PCR) NEGATIVE 08/24/24 08/25/24 20:32 07:15 MCV 85.6 MCH 29.5 MCHC 34.5 RDW 12.7 Plt Count 281 MPV 11.8 Immature Gran % (Auto) 0.3 Neut % (Auto) 55.3 Lymph % (Auto) 28.6 [place] % (Auto) 10.2 Eos % (Auto) 4.4 H Baso % (Auto) 1.2 Lymph # (Auto) 2.7 [place] # (Auto) 0.9 Eos # (Auto) 0.4 Baso # (Auto) 0.1 Abs Immat Gran (auto) 0.03 Absolute Neuts (auto) 5.1 Absolute Nucleated RBC 0.000 Nucleated RBC % (auto) 0.0 ESR Anion Gap 13 Estim Creat Clear Calc 111.2 Estimated GFR > 60 Random Glucose 101 Calcium 8.9 Magnesium Total Bilirubin Direct Bilirubin AST ALT Alkaline Phosphatase Troponin I High Sens C-Reactive Protein B-Natriuretic Peptide Total Protein Albumin Lipase TSH Free T4 Urine Opiates Screen Not Detected Ur Buprenorphine Scrn Not Detected Ur Oxycodone Screen Not Detected Urine Methadone Screen Not Detected Urine Fentanyl Screen Not Detected Ur Barbiturates Screen Not Detected Ur Phencyclidine Scrn Not Detected Ur Amphetamines Screen Not Detected U Benzodiazepines Scrn Not Detected Urine Cocaine Screen POSITIVE H U Marijuana (THC) Screen POSITIVE H Influenza Type A (PCR) Influenza Type B (PCR) RSV RNA Qual (PCR) SARS-CoV-2 RNA (RT-PCR) Assessment and Plan (1) CHF (congestive heart failure): Status: Acute Plan 34 yo male with a pmhx significant for cocaine use and hyperthryoidism, who presented to the ED with 3 days of SOB and dry cough, worsening. recent hx of regular cocaine use and untreated hyperthyroid. Acute CHF exacerbation CXR with Cardiac enlargement. Vascular congestion with evidence of mild interstitial pulmonary edema. Major differential would include underlying interstitial pulmonary disease. CTA negative for PE. + pulmonary edema and small right pleural effusion. evidence of R heart dysfunction. BNP 1186 EKG with sinus tach and PVCs trops x2 negative flu/COVID/RSV negative continue lasix 40mg BID echo>EF 10-15% cardiology consult>continue lasix 40 BID IV, strict intake and output Hyperthyroid - likely cause of tachycardia, can be contributing to CHF TSH pending Cocaine use pt 8 days sober, encourage to continue sobriety full code VTE prophy: lovenox Bowel reg MOM prn Pt with acute CHF exacerbation requiring admission for IV diuresis and further w/u for at least 2 midnights stay. Quality Stroke Does the patient have a stroke diagnosis?: No VTE Prior VTE?: No VTE Risk Level:: Medical - moderate - high VTE Device Contraindication: Treatment Not Indicated VTE Drug Contraindication: N/A - Med Ordered
[2024-08-25 15:33] VITALS: BP 106/77; PULSE 100; RESP 18; TEMP 37.2; O2SAT 95
--- NOTE | 2024-08-25 16:03 | PM.DS ---
DS: Providers Provider Date of Service: 08/25/24 Date of admission: 08/24/24 20:46 Date of discharge: 08/25/24 Primary care physician: None Physician Consults: 08/24/24 20:46 Consult to Cardiology Routine Consulting Provider: Jose De Jesus Vega Reason for consultation: new dx CHF DS: Diagnosis Discharge Diagnosis (1) Acute congestive heart failure: Status: Acute DS: Summary Hospital Course Hospital Course: History and physical as per admitting provider. Pt is a 34 yo male with a pmhx significant for cocaine use and hyperthryoidism, who presented to the ED with 3 days of SOB and dry cough, worsening. he went to [facility] ED yesterday and states that he was told the wait was >8 hours so he decided he would feel better if he went home to rest. he has orthopnea and denies any LE edema. has used cocaine in mild to moderate amounts recently daily for 10 weeks but stopped 8 days ago. he also reports occasional social etoh and quit drinking and smoking 1 week ago. he does not inject. he denies fever, chilld, nausea, vomiting, headache, sore throat, congestion, or rhinorrhea. 34-year-old man treated for acute congestive heart failure exacerbation. Echocardiogram showing EF of 10-15% with severe global hypokinesis. Patient denies any significant medical history including cardiac history. He has been using cocaine for multiple weeks just prior to admission. He has been treated with IV Lasix 40 mg twice daily with BNP of 1186. CTA negative for PE but showing pulmonary edema and small right pleural effusion with evidence of right heart dysfunction. Had 10 beat run of nonsustained V-tach today. Seen and evaluated by Cardiology with recommendation to transfer to tertiary care facility for cardiac catheterization. Hyperthyroidism. Patient reports hx of hyperthyrodism. Stopped taking Methamazole 6 months ago when he no longer had a PCP. Tachycardia, TSH 0.01, free T4 1.62, free T3 pending result, new diagnosis, no treatment. No infectious signs. Discussed with [facility] endo, rec would be to start Methamazole 5mg, although discretion of [facility] endo. Time Attestation Discharge Coordination Time (in mins): 45 Quality: Safe Use of Opioids Does Pt have an Active Cancer Diagnosis on the Problem List?: No Quality: Stroke Does the patient have a stroke diagnosis?: No Physical Exam Vital Signs: Vital Signs: Last Vital Signs Temp 99.0 F 08/25/24 15:33 Pulse 100 08/25/24 15:33 Resp 18 08/25/24 15:33 BP 106/77 08/25/24 15:33 Pulse Ox 95 08/25/24 15:33 O2 Del Method Room Air 08/25/24 15:33 BMI result Body Mass Index 21.9 Appearing in no acute distress head is normocephalic atraumatic eyes pupils are PERRLA sclera is anicteric mouth throat mucous membranes are intact and moist neck is supple no lymphadenopathy, no JVD noted lung sounds are clear to auscultation heart regular rate rhythm, clear S1, S2 positive bowel sounds, abdomen is soft, nontender neuro patient is alert x3, no focal deficits DS: Data Data Completed and Pending Labs on day of discharge: Laboratory Results - last 24 hr 08/24/24 08/24/24 08/24/24 12:48 17:10 20:32 WBC RBC Hgb Hct MCV MCH MCHC RDW Plt Count MPV Immature Gran % (Auto) Neut % (Auto) Lymph % (Auto) [place] % (Auto) Eos % (Auto) Baso % (Auto) Lymph # (Auto) [place] # (Auto) Eos # (Auto) Baso # (Auto) Abs Immat Gran (auto) Absolute Neuts (auto) Absolute Nucleated RBC Nucleated RBC % (auto) ESR 2 Sodium Potassium Chloride Carbon Dioxide Anion Gap BUN Creatinine Estim Creat Clear Calc Estimated GFR Random Glucose Calcium Troponin I High Sens 13.2 C-Reactive Protein 0.41 TSH 0.01 L Free T4 1.62 Urine Opiates Screen Not Detected Ur Buprenorphine Scrn Not Detected Ur Oxycodone Screen Not Detected Urine Methadone Screen Not Detected Urine Fentanyl Screen Not Detected Ur Barbiturates Screen Not Detected Ur Phencyclidine Scrn Not Detected Ur Amphetamines Screen Not Detected U Benzodiazepines Scrn Not Detected Urine Cocaine Screen POSITIVE H U Marijuana (THC) Screen POSITIVE H 08/25/24 07:15 WBC 9.3 RBC 5.22 Hgb 15.4 Hct 44.7 MCV 85.6 MCH 29.5 MCHC 34.5 RDW 12.7 Plt Count 281 MPV 11.8 Immature Gran % (Auto) 0.3 Neut % (Auto) 55.3 Lymph % (Auto) 28.6 [place] % (Auto) 10.2 Eos % (Auto) 4.4 H Baso % (Auto) 1.2 Lymph # (Auto) 2.7 [place] # (Auto) 0.9 Eos # (Auto) 0.4 Baso # (Auto) 0.1 Abs Immat Gran (auto) 0.03 Absolute Neuts (auto) 5.1 Absolute Nucleated RBC 0.000 Nucleated RBC % (auto) 0.0 ESR Sodium 139 Potassium 3.9 Chloride 109 H Carbon Dioxide 21 L Anion Gap 13 BUN 12 Creatinine 0.84 Estim Creat Clear Calc 111.2 Estimated GFR > 60 Random Glucose 101 Calcium 8.9 Troponin I High Sens C-Reactive Protein TSH Free T4 Urine Opiates Screen Ur Buprenorphine Scrn Ur Oxycodone Screen Urine Methadone Screen Urine Fentanyl Screen Ur Barbiturates Screen Ur Phencyclidine Scrn Ur Amphetamines Screen U Benzodiazepines Scrn Urine Cocaine Screen U Marijuana (THC) Screen Discharge Plan Discharge Anticipated Discharge Date/Time: 08/25/24 16:00 Patient Disposition: Xfer Acute Care Hospital Discharge Diagnosis: Heart failure with reduced ejection fraction Referrals: [facility] [Outside] - 1 Week Discharge Medications: New furosemide 10 mg/mL Solution 40 mg IVPUSH BID@0900,1800 Qty: 40 0RF Protocol: Hold for SBP< HOLD for SBP < : 90 Discharge Orders: Discharge Order (Routine); Ordered 08/25/24 Ordered By: Margaux Arthur Diet: Advance to usual diet Activity on Discharge: As tolerated Stand Alone Forms: Patient Portal Discharge page Print Language: Serbian Care Plan Goals: Transfer to [facility] for cardiac catheterization Health Concerns: Heart failure with reduced ejection fraction Cocaine use No other significant medical history Plan of Treatment: Currently on Lasix IV 40 mg b.i.d. Assessment: See discharge summary
--- NOTE | 2024-08-25 16:08 | MHC.CM.PN ---
Patient will be transferred to [facility].
[2024-08-26 10:19] LABS: Triiodothyronine T3 Total 149 ng/dL (76-181)
== END 2024-08-25 17:30 | disposition short-term general hospital (02) | DRG 292 ==
LOC: HO.ED 19:54 → HO.EDOVER 20:55 → HO.IMC 21:12
PROVIDERS: Internal Medicine; Physician Assistant Medical; Admitting Provider Physician Assistant; Emergency Provider Emergency Medicine; Visit Provider Nurse Practitioner Acute Care
DX: I50.21 Acute systolic (congestive) heart failure (principal); I42.9 Cardiomyopathy, unspecified; I47.20 Ventricular tachycardia, unspecified; E05.90 Thyrotoxicosis, unspecified without thyrotoxic crisis or storm; F14.90 Cocaine use, unspecified, uncomplicated; I34.0 Nonrheumatic mitral (valve) insufficiency; Z20.822 Contact with and (suspected) exposure to COVID-19; Z87.891 Personal history of nicotine dependence; Z79.899 Other long term (current) drug therapy
CPT/HCPCS: 0241U; 36415; 71046; 71275; 80048; 80053; 80307; 82248; 83690; 83735; 83880; 84439; 84443; 84480; 84484; 85025; 85652; 86140; 93005; 93306; 99285; J1650; J1940; Q9957; Q9967

== ENCOUNTER → 2024-08-24 11:30 | Outpatient (BNV) | payer MEDICAID, SELFPAY | PROVIDERS: Visit Provider Radiology Diagnostic Radiology | DX: J81.0 Acute pulmonary edema (principal); J98.11 Atelectasis; I50.810 Right heart failure, unspecified; I51.7 Cardiomegaly | CPT/HCPCS: 71046; 71275 ==

== ENCOUNTER → 2024-08-24 20:46 | Outpatient (BNV) | payer MEDICARE, SELFPAY | PROVIDERS: Admitting Provider Physician Assistant; Emergency Provider Emergency Medicine; Visit Provider Physician Assistant | DX: I50.9 Heart failure, unspecified (principal) | CPT/HCPCS: 99232; 99239 ==

== ENCOUNTER → 2024-08-24 20:46 | Outpatient (BNV) | payer MEDICAID, SELFPAY | PROVIDERS: Admitting Provider Physician Assistant; Emergency Provider Emergency Medicine; Visit Provider Internal Medicine | DX: I50.9 Heart failure, unspecified (principal); R00.0 Tachycardia, unspecified | CPT/HCPCS: 93010; 99223 ==